=== PATIENT | female | born 1960 | race Caucasian/White ===

== ENCOUNTER → 2020-08-25 | Day surgery (SDC) | payer OTHER ==
[~2020-08-25] VITALS: Ht 170.2 cm; Wt 81.6 kg
[~2020-08-25] MED LIST: AZO BLADDER CO1 EACH PO; BREZTRI AEROS10.7 GM INH; CO Q10200 MG PO; CRESTOR10 MG PO; CYMBALTA 30MG C30 MG PO; DAILY VITE1 EACH PO; VENTOLIN HFA IN18 GM INH; VITAMIN D350 MC5 PO; ZYRTEC10 MG PO
== END | disposition home or self-care (01) ==
LOC: FAS 07-28 08:00
DX: Z12.11 Encounter for screening for malignant neoplasm of colon (principal); Z80.0 Family history of malignant neoplasm of digestive organs; K58.1 Irritable bowel syndrome with constipation; K63.89 Other specified diseases of intestine; Z90.49 Acquired absence of other specified parts of digestive tract; F32.9 Major depressive disorder, single episode, unspecified; N32.81 Overactive bladder; J45.909 Unspecified asthma, uncomplicated
CPT/HCPCS: 74270; J2704; J7120